=== PATIENT | male | born 1990 | race Caucasian/White ===

== ENCOUNTER 2017-04-02 19:40 | Emergency (ER) | payer BC ==
[~2017-04-02] VITALS: Ht 182.9 cm; Wt 111.6 kg
[2017-04-02] MEDS ORDERED: IV NORMAL SALINE 1000ML BAG 1,000 ML IV ONE (20:15)
[2017-04-02 20:31] LABS: BASO # 0.1 x10^3/uL (0.0-0.2); BASO % 1 % (0-3); EOS % 1 % (0-3); HEMATOCRIT 49.1 % (39.0-53.0); HEMOGLOBIN 16.7 g/dL (13.0-17.5); LYMPH # 2.1 x10^3/uL (1.0-4.8); LYMPH % 23 % (24-48); MEAN CORPUSCULAR HEMOGLOBIN 31 pg (25-35); MEAN CORPUSCULAR HGB CONC 34 g/dL (31-37); MEAN CORPUSCULAR VOLUME 90 fL (79-100); MONO % 8 % (0-9); NEUT % 67 % (31-73); PLATELET COUNT 267 x10^3/uL (140-400); RED BLOOD COUNT 5.45 x10^6/uL (4.30-5.70); WHITE BLOOD COUNT 9.1 x10^3/uL (4.0-11.0)
--- NOTE | 2017-04-02 20:38 | PHYS DOC ---
Past Medical History Past Medical History: No Pertinent History Past Surgical History: Appendectomy Alcohol Use: Occasionally Drug Use: Marijuana Adult General Chief Complaint Chief Complaint: SYNCOPE HPI HPI 26-year-old male who had a full single episode today around 4 PM. Patient states he sitting on a stool for approximately 10-15 minutes and then went to live some things around home and then felt very lightheaded and dizzy and then awoke on the floor impacting the back of his head. He states he was not confused. He denies biting his tongue or having any urinary incontinence. Patient denies any history of this before. He denies any history of seizures. He denies any history of health problems. He states he's been thinking normally but does have a mild occipital headache. Review of Systems Review of Systems Constitutional: Denies fever or chills [] Eyes: Denies change in visual acuity, redness, or eye pain [] HENT: Denies nasal congestion or sore throat [] Respiratory: Denies cough or shortness of breath [] Cardiovascular: No additional information not addressed in HPI [] GI: Denies abdominal pain, nausea, vomiting, bloody stools or diarrhea [] : Denies dysuria or hematuria [] Musculoskeletal: Denies back pain or joint pain [] Integument: Denies rash or skin lesions [] Neurologic: Denies headache, focal weakness or sensory changes [] Endocrine: Denies polyuria or polydipsia [] Current Medications Current Medications Current Medications Medications (Trade) Dose Ordered Sig/Celina Start Time Stop Time Status Last Admin Dose Admin Acetaminophen (Tylenol) 1,000 mg 1X ONCE 04/02/17 20:45 04/02/17 20:47 DC 04/02/17 20:54 1,000 MG Sodium Chloride 1,000 ml @ 1,000 mls/hr 1X ONCE 04/02/17 20:15 04/02/17 21:14 04/02/17 20:19 1,000 MLS/HR Allergies Allergies Allergies Coded Allergies Type Severity Reaction Last Updated Verified No Known Drug Allergies 04/02/17 No Physical Exam Physical Exam Constitutional: Well developed, well nourished, no acute distress, non-toxic appearance. [] HENT: Normocephalic, atraumatic, bilateral external ears normal, oropharynx moist, no oral exudates, nose normal, occipital scalp hematoma, no hemotympanum. [] Eyes: PERRLA, EOMI, conjunctiva normal, no discharge. [] Neck: Normal range of motion, no tenderness, supple, no stridor. [] Cardiovascular:Heart rate regular rhythm, no murmur [] Lungs & Thorax: Bilateral breath sounds clear to auscultation [] Abdomen: Bowel sounds normal, soft, no tenderness, no masses, no pulsatile masses. [] Skin: Warm, dry, no erythema, no rash. [] Back: No tenderness, no CVA tenderness. [] Extremities: No tenderness, no cyanosis, no clubbing, ROM intact, no edema. [] Neurologic: Alert and oriented X 3, normal motor function, normal sensory function, no focal deficits noted. [] Psychologic: Affect normal, judgement normal, mood normal. [] Current Patient Data Vital Signs Vital Signs Date Time Temp Pulse Resp B/P (MAP) Pulse Ox O2 Delivery O2 Flow Rate FiO2 04/02/17 19:50 98.3 84 20 135/80 (98) 98 Room Air 98.3 Lab Values Laboratory Tests Test 04/02/17 20:15 White Blood Count 9.1 x10^3/uL (4.0-11.0) Red Blood Count 5.45 x10^6/uL (4.30-5.70) Hemoglobin 16.7 g/dL (13.0-17.5) Hematocrit 49.1 % (39.0-53.0) Mean Corpuscular Volume 90 fL (79-100) Mean Corpuscular Hemoglobin 31 pg (25-35) Mean Corpuscular Hemoglobin Concent 34 g/dL (31-37) Red Cell Distribution Width 13.0 % (11.5-14.5) Platelet Count 267 x10^3/uL (140-400) Neutrophils (%) (Auto) 67 % (31-73) Lymphocytes (%) (Auto) 23 % (24-48) L Monocytes (%) (Auto) 8 % (0-9) Eosinophils (%) (Auto) 1 % (0-3) Basophils (%) (Auto) 1 % (0-3) Neutrophils # (Auto) 6.1 x10^3uL (1.8-7.7) Lymphocytes # (Auto) 2.1 x10^3/uL (1.0-4.8) Monocytes # (Auto) 0.7 x10^3/uL (0.0-1.1) Eosinophils # (Auto) 0.1 x10^3/uL (0.0-0.7) Basophils # (Auto) 0.1 x10^3/uL (0.0-0.2) Sodium Level 139 mmol/L (136-145) Potassium Level 4.0 mmol/L (3.5-5.1) Chloride Level 105 mmol/L (98-107) Carbon Dioxide Level 27 mmol/L (21-32) Anion Gap 7 (6-14) Blood Urea Nitrogen 17 mg/dL (8-26) Creatinine 1.1 mg/dL (0.7-1.3) Estimated GFR (Cockcroft-Gault) 81.6 Glucose Level 109 mg/dL (70-99) H Calcium Level 9.1 mg/dL (8.5-10.1) Laboratory Tests 04/02/17 20:15 Laboratory Tests 04/02/17 20:15 EKG EKG EKG as interpreted by me shows a sinus rhythm with rate of 62 bpm. There are no acute findings on this EKG. This is a normal EKG. Intervals are normal. There is no ectopy. Radiology/Procedures Radiology/Procedures One view of the chest as interpreted by me did not reveal an acute cardiopulmonary process Course & Med Decision Making Course & Med Decision Making Pertinent Labs and Imaging studies reviewed. (See chart for details) This 26-year-old male who had a pulsatile episode and has a scalp hematoma to his occipital area will have full laboratory workup and a chest x-ray and EKG. At this time, his EKG and chest x-ray are unremarkable. He feels symptomatically better other than a mild occipital headache overlying where his hematoma. I counseled him that if his workup is negative that he'll likely be safe to be discharged home and follow closely with his primary care doctor as he has no significant past medical history and his EKG is totally normal. We will observe him in the department for several hours for any dynamic rhythm changes. His laboratory workup was unremarkable. He denies any return of his symptoms. His head CT was negative. Patient was given a full liter bolus of fluids. He feels comfortable going home and receiving close follow-up. I see no other further testing do at this time. I did grief counsellor him that he may require a Holter monitor. He has had no significant rhythm changes on the department. Dragon Disclaimer Dragon Disclaimer This electronic medical record was generated, in whole or in part, using a voice recognition dictation system. Departure Departure Impression: Primary Impression: Syncope Additional Impression: Head injury Disposition: 01 HOME, SELF-CARE Admitting Physician: Other Condition: STABLE Patient Instructions: Head Injury, Adult, [id number], Syncope, [id number] Additional Instructions: Please follow up with your primary doctor in the next 2-3 days regarding your syncopal episode. Continue to drink plenty of fluids and take tylenol for any your head injury. Return to the ER immediately if you develop any worsening headache or if you have a repeat episode of loss of consciousness. Problem Qualifiers FERNIE DRISCOLL DO April 02, 2017 20:38
--- NOTE | 2017-04-02 20:39 | RAD ---
PROCEDURE CT head without contrast dated 04/02/2017. HISTORY Past at back of head at 16:00 today. Headache. TECHNIQUE Contiguous axial imaging of the head was performed from skull base to vertex. No contrast administered.Exposure: One or more of the following individualized dose reduction techniques were utilized for this exam: 1. Automated exposure control. 2. Adjustment of the mA and/or kV according to patient size. 3. Use of iterative reconstruction technique. COMPARISON None. FINDINGS Ventricles and sulci are within normal limits for age. No midline shift or mass effect. Brain parenchyma is of normal attenuation. No hemorrhage or extra-axial collection. Posterior fossa and brainstem unremarkable. Mild mucosal thickening bilateral ethmoid air cells and right maxillary sinus. The visualized paranasal sinuses at the no acute calvarial abnormality. IMPRESSION - No evidence of acute intracranial abnormality. - Minimal sinus disease. Electronically signed by: Bertram Reynoso (April 02, 2017 20:38:43)
[2017-04-02 20:44] LABS: CALCIUM 9.1 mg/dL (8.5-10.1); CREATININE 1.1 mg/dL (0.7-1.3); GFR 81.6
[2017-04-02] MEDS ORDERED: ACETAMINOPHEN 500 MG TABLET PO ONE (20:45)
[2017-04-02 20:53] VITALS: BP 128/74
--- NOTE | 2017-04-03 08:04 | RAD ---
Indication: Dizziness and lightheadedness beginning today. Technique: AP upright portable chest radiograph was obtained and reviewed without comparison available. Findings: The lungs are clear. The heart is not enlarged. There is no heart failure. Bony structures are intact. Leads overlie the patient. Impression: No acute thoracic findings.
--- NOTE | 2017-04-03 10:05 | EKG ---
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
== END 2017-04-02 21:25 | disposition home or self-care (01) ==
LOC: ER 21:24
DX: S09.90XA Unspecified injury of head, initial encounter (principal); R55 Syncope and collapse; F12.10 Cannabis abuse, uncomplicated; W17.89XA Other fall from one level to another, initial encounter; Y93.89 Activity, other specified; Y99.8 Other external cause status; Y92.89 Other specified places as the place of occurrence of the external cause
CPT/HCPCS: 36415; 70450; 71010; 80048; 80305; 80320; 85027; 93005; 96360; 99285; J7030; G0480; G0481